=== PATIENT | male | born 2000 | race Two or more races ===

== ENCOUNTER 2018-05-16 17:24 | Emergency (ER) | payer SELFPAY ==
[~2018-05-16] VITALS: Ht 170.2 cm; Wt 81.6 kg
[2018-05-16 17:42] VITALS: BP 150/70
== END 2018-05-16 19:55 | disposition home or self-care (01) ==
LOC: ER 17:24
DX: J06.9 Acute upper respiratory infection, unspecified (principal)
CPT/HCPCS: 70360